=== PATIENT | female | born 1970 | race Caucasian/White ===

== ENCOUNTER 2020-11-23 08:30 | Emergency (ER) | payer OTHER, SELFPAY ==
--- NOTE | ~2020-11-23 | XR_ITS ---
EXAMINATION: XR hand LT min 3V EXAM DATE: 11/23/2020 08:50 INDICATION: Hit hand on tatum. Left 5th metacarpal area. Initial encounter. TECHNIQUE: Left hand frontal, lateral and oblique projections obtained and reviewed. There is no elinor or study for comparison. FINDINGS: Left metacarpal bones are unremarkable. There are no acute fractures or dislocations ident ified. There is no subcutaneous gas. The soft tissue is unremarkable. There are no radiopaque for eign bodies. IMPRESSION: 1. XR hand LT min 3V exam without acute osseous findings. Reviewed, dictated and finalized at location B. E ANALYST
[2020-11-23 08:43] VITALS: BP 138/78; PULSE 86; RESP 20; TEMP 35.7; O2SAT 100
[2020-11-23 08:46] VITALS: BP 138/78; PULSE 86; RESP 20; TEMP 35.7; O2SAT 100
--- NOTE | 2020-11-23 08:56 | ED.UPPEXIN ---
HPI - Extremity Injury (Upper) General Chief Complaint: Extremity Injury, Upper Stated Complaint: lt hand injury Time Seen by Provider: 11/23/20 08:57 Source: patient and RN notes reviewed Mode of arrival: ambulatory Limitations: no limitations History of Present Illness HPI narrative: 50-year-old female presents concern for pain to the fourth and fifth digit of her left hand. Reports she jammed the fingers at work today just prior to arrival. She denies any decreased strength, sensation, range of motion. Denies any open skin, redness, swelling. Denies any intervention. complaint: injury to: left and hand Other Extremity Injury: Left: hand Related Data Home Medications Medication Instructions Recorded Confirmed levothyroxine 224 mcg PO DAILY 11/23/20 11/23/20 Allergies Allergy/AdvReac Type Severity Reaction Status Date / Time No Known Allergies Allergy Verified 11/23/20 08:44 Review of Systems Review of Systems: Narrative: CONSTITUTIONAL: Denies malaise, chills, sweats, or fever. SKIN: Denies abrasion, laceration MUSCULOSKELETAL: Reports left hand pain, at the fourth and fifth digits, beneath the digits NEUROLOGIC: Denies numbness, weakness All systems reviewed & are unremarkable except as noted in HPI and below PMFSH Comments At time of signature, agree with nursing past medical, surgical, social and family history. There is no relevant family history pertinent to the presenting complaint Exam Narrative: Exam Narrative: GENERAL: Well-appearing, well-nourished, and in no acute distress. HEAD: Normocephalic EYES: PERRLA, conjunctivae clear NECK: Supple. CHEST: Speaks in full sentences. No respiratory distress. HEART: Regular rate and rhythm. Normal and equal peripheral pulses. EXTREMITIES: Left hand and digits of hand have normal strength and sensation. 5/5 strength with digit flexion, extension. Range of motion normal. No clubbing, cyanosis, or edema noted. No tenderness. Skin intact. Normal digital cascade with flexion of fingers, median, ulnar and radial nerve intact. Normal sensation of each side of finger. Can perform 'okay' sign, 'cross over finger test of index and middle fingers' and 'thumbs up' sign. No scissoring. Normal thumb opposition. Good capillary refill and radial pulse. Distal capillary refill less than 3 seconds. SKIN: Warn, dry, intact, pink. No rash NEURO: Alert and oriented x3. PSYCH: Normal mood and affect Course Course Emergency Course: Patient is aware of diagnosis, understands and agrees to treatment plan. Anticipatory guidance given. Patient agrees to follow-up as directed and is aware of reasons to seek care at the emergency department. Portions of this record may have been created with voice recognition software Vital Signs Vital signs: Vital Signs Temperature 96.3 F L 11/23/20 08:43 Pulse Rate 86 11/23/20 08:43 Respiratory Rate 20 11/23/20 08:43 Blood Pressure 138/78 11/23/20 08:43 Pulse Oximetry 100 11/23/20 08:43 Temperature 96.3 F L 11/23/20 08:46 Pulse Rate 86 11/23/20 08:46 Respiratory Rate 20 11/23/20 08:46 Blood Pressure 138/78 11/23/20 08:46 Pulse Oximetry 100 11/23/20 08:46 Reviewed. MDM - Extremity Injury (Upper) MDM Narrative Medical decision making narrative: Patients injury and pain is consistent with musculoskeletal etiology. No signs of neurological or vascular compromise on exam. Compartments and tissues are soft without signs of compartment syndrome. Pain is felt appropriate for further evaluation on an outpatient basis. Critical Care Time Critical Care Time Critical Care Time: No Discharge Plan Discharge Clinical Impression: Hand injury Qualifiers: Encounter type: initial encounter Laterality: left Qualified Code(s): S69.92XA - Unspecified injury of left wrist, hand and finger(s), initial encounter Patient Disposition: Home, Self-Care Condition: Stable Instructions: Hand Sprain (ED) Prescriptio
== END 2020-11-23 09:15 | disposition home or self-care (01) ==
PROVIDERS: Emergency Provider Nurse Practitioner; PCP Family Medicine
DX: S69.92XA Unspecified injury of left wrist, hand and finger(s), initial encounter (principal); X58.XXXA Exposure to other specified factors, initial encounter; Y99.0 Civilian activity done for income or pay
CPT/HCPCS: 73130; 99213; G0463